=== PATIENT | female | born 1990 | race Asian ===

== ENCOUNTER 2019-07-12 08:45 | Emergency (ER) | payer MEDICAID ==
[~2019-07-12] VITALS: Ht 165.1 cm; Wt 79.4 kg
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
[2019-07-12] MEDS ORDERED: ACETAMINOPHEN ES 500 MG TABLET ONE (09:16)
[2019-07-12] MEDS ORDERED: IBUPROFEN 600 MG TABLET PO ONE ×2 (09:17→09:30)
--- NOTE | 2019-07-12 09:20 | NUR ---
XRAY AT BEDSIDE
[2019-07-12] MEDS ORDERED: ACETAMINOPHEN ES 500 MG TABLET PO ONE (09:30)
--- NOTE | 2019-07-12 09:46 | NUR ---
OFFICER [facility] #[id number] AT BEDSIDE
[2019-07-12 10:02] VITALS: BP 124/82
--- NOTE | 2019-07-12 10:02 | NUR ---
Patient discharged to home in stable condition. Written and verbal after care instructions given. Patient verbalizes understanding of instruction.
== END 2019-07-12 10:03 | disposition home or self-care (01) ==
LOC: ER 08:48
DX: S00.512A Abrasion of oral cavity, initial encounter (principal); V49.49XA Driver injured in collision with other motor vehicles in traffic accident, initial encounter; Y93.89 Activity, other specified; Y92.413 State road as the place of occurrence of the external cause; Y99.8 Other external cause status
CPT/HCPCS: 71045-TC